=== PATIENT | male | born 1995 | race Caucasian/White ===

== ENCOUNTER 2022-02-24 16:16 | Emergency (ER) | payer OTHER ==
[2022-02-24 16:52] VITALS: BP 130/75; PULSE 76; RESP 18; TEMP 98.2
[2022-02-24] MEDS ORDERED: methylPREDNISolone SOD SUCCI 125 MG/2 ML VIAL IM ONE (16:59)
[2022-02-24] MEDS ORDERED: KETOROLAC 15 MG/ML 1 ML VIAL IM STA (16:59)
[2022-02-24] MEDS ORDERED: LIDOCAINE 5% PATCH TOPICAL SCH (17:00)
--- NOTE | 2022-02-24 17:33 | ED ---
General Adult HPI - General Chief complaint: Extremity Injury, Upper Stated complaint: Shoulder neck & arm pain Time Seen by Provider: 02/24/22 16:49 Source: patient Mode of arrival: ambulatory Limitations: no limitations - History of Present Illness Initial comments: Patient is a 26-year-old male who presents to the emergency department with a chief complaint of left shoulder pain. Patient denies recent injury however states his left shoulder has experienced wearing tear from sports which has resulted in chronic left shoulder pain. Patient states during last 4 days the shoulder pain has been consistent and worse than usual. Reports pain deep in his shoulder which radiates to the scapula, neck, and left arm. Pain worsened with shoulder flexion. Reports intermittent tingling down his left arm. Patient currently resides at [facility] for opioid dependence. States he has been taking Tylenol and Motrin with little relief. - Related Data Previous Rx's Medication Instructions Recorded Cyclobenzaprine [Flexeril] 10 mg PO HS PRN #7 tablet 02/24/22 Ketorolac [Toradol] 10 mg PO Q8HR PRN #15 tab 02/24/22 predniSONE 50 mg PO DAILY #5 tab 02/24/22 Allergies Allergy/AdvReac Type Severity Reaction Status Date / Time No Known Allergies Allergy Verified 02/24/22 16:51 Review of Systems ROS Statement: Those systems with pertinent positive or pertinent negative responses have been documented in the HPI. ROS Other: All systems not noted in ROS Statement are negative. Past Medical History Past Medical History: Seizure Disorder Additional Past Medical History / Comment(s): concussion History of Any Multi-Drug Resistant Organisms: None Reported Additional Past Surgical History / Comment(s): x3 ACL repair Past Psychological History: Anxiety, Depression Smoking Status: Current every day smoker Past Alcohol Use History: None Reported Past Drug Use History: Opiates, Prescription Drug Abuse General Exam Limitations: no limitations General appearance: alert, in no apparent distress Head exam: Present: atraumatic, normocephalic, normal inspection Eye exam: Present: normal appearance, PERRL, EOMI. Absent: scleral icterus, conjunctival injection, periorbital swelling Respiratory exam: Present: normal lung sounds bilaterally. Absent: respiratory distress, wheezes, rales, rhonchi, stridor Cardiovascular Exam: Present: regular rate, normal rhythm, normal heart sounds. Absent: systolic murmur, diastolic murmur, rubs, gallop, clicks Extremities exam: Present: other (Normal inspection of the neck, left shoulder, left upper back, and left arm. Pain with palpation of the left trapezius muscle otherwise no tenderness. Full range of motion of the left shoulder and neck. Increased pain with left shoulder flexion. Neurovascularly intact) Neurological exam: Present: alert, oriented X3, CN II-XII intact Psychiatric exam: Present: normal affect, normal mood Skin exam: Present: warm, dry, intact, normal color. Absent: rash Course Vital Signs 02/24/22 16:48 Temperature 98.2 F Pulse Rate 76 Respiratory 18 Rate Blood Pressure 130/75 O2 Sat by Pulse 100 Oximetry Medical Decision Making - Medical Decision Making This is a 26-year-old male who presents with left shoulder pain. Left shoulder x-ray negative for acute process. Based on clinical presentation and physical exam, pain likely related to muscular etiology. Possibly neck injury with radicular symptoms. Pain treated in the emergency department which improved symptoms. Patient will be discharged with prednisone, Toradol, and muscle relaxers. He will follow up with child specialist if pain does not improve in 1-[address] White is my attending. Disposition Clinical Impression: Left shoulder pain, Radicular pain in left arm Disposition: HOME SELF-CARE Condition: Good Instructions (If sedation given, give patient instructions): Cervical Radiculopathy (ED), Shoulder Pain (ED), Neck Pain (ED) Additional Instructions: Take medication as directed. Do not take alcohol or operate machinery while taking Flexeril as it can make you sleepy. Follow-up with child specialist in 1-2 weeks if symptoms do not improve. Return to the emergency department experience new, concerning, or worsening symptoms. Prescriptions: Cyclobenzaprine [Flexeril] 10 mg PO HS PRN #7 tablet PRN Reason: Muscle Spasm predniSONE 50 mg PO DAILY #5 tab Ketorolac [Toradol] 10 mg PO Q8HR PRN #15 tab PRN Reason: Pain Is patient prescribed a controlled substance at d/c from ED?: No Referrals: None,Stated [Primary Care Provider] - 1-2 days Carli López DO [Doctor of Osteopathic Medicine] - 1-2 days Time of Disposition: 17:32
--- NOTE | 2022-02-24 18:09 | XR ---
EXAMINATION TYPE: XR shoulder complete LT DATE OF EXAM: 02/24/2022 5:25 PM INDICATION: Patient age:Male; 26 years old; Reason for study: pain; COMPARISON: None TECHNIQUE: The left shoulder was examined in AP, internally rotated and scapular Y projections. . FINDINGS: No evidence of acute osseous pathology, joint dislocation, or soft tissue swelling. The remaining por tions of the visualized chest are unremarkable. IMPRESSION: No acute osseous pathology.
== END 2022-02-24 18:32 | disposition home or self-care (01) ==
LOC: EC 16:16
DX: M25.512 Pain in left shoulder (principal); M54.10 Radiculopathy, site unspecified; G40.909 Epilepsy, unspecified, not intractable, without status epilepticus; F41.9 Anxiety disorder, unspecified; F32.A Depression, unspecified; F17.200 Nicotine dependence, unspecified, uncomplicated; Z79.899 Other long term (current) drug therapy
CPT/HCPCS: 99283 ×2; 96372 ×3; 73030; J2930; J1885